=== PATIENT | male | born 1960 | race Caucasian/White ===

== ENCOUNTER 2021-12-09 08:00 | Outpatient (CLI) | payer BC | END 2021-12-09 08:01 | disposition home or self-care (01) | LOC: CSHCT 08:00 | PROVIDERS: ATTEND Family Medicine | DX: J98.4 Other disorders of lung (principal); D32.9 Benign neoplasm of meninges, unspecified; K76.0 Fatty (change of) liver, not elsewhere classified; I25.10 Atherosclerotic heart disease of native coronary artery without angina pectoris; I25.84 Coronary atherosclerosis due to calcified coronary lesion | CPT/HCPCS: 70553; 71260; 71270; 82565 ==

== ENCOUNTER 2024-03-08 23:46 | Emergency (ER) | payer BC ==
[2024-03-09 00:47] LABS: #Basophils 0.05 10x3/uL (0.0-0.2); #Eosinphils 0.15 10x3/uL (0.0-0.5); #Monocytes 0.53 10x3/uL (0.0-1.1); #Neutrophils 5.13 10x3/uL (1.5-8.4); %Basophils 0.7 % (0.0-2.0); %Lymphocytes 22.7 % (18.0-47.0); %Neutrophils 67.5 % (40.0-75.0); Hemoglobin 14.8 g/dL (13.5-17.5); Mean Corpuscular HGB CONC 32.2 g/dL (32.0-36.0); Mean Corpuscular Hemoglobin 29.7 pg (27.0-33.0); Mean Corpuscular Volume 92.4 fL (81.2-95.1); Mean Platelet Volume 10.3 fL (7.4-10.4); Platelet Count 186 10x3/uL (150-450); RBC Distribution Width 14.2 % (11.5-14.5); Red Blood Cell (RBC) Count 4.98 10x6/uL (4.32-5.72); White Blood Cell (WBC) Count 7.6 10x3/uL (3.5-10.5)
[2024-03-09] MEDS ORDERED: HYDROcodone/Acetaminophen 10/325 mg Tablet ONE (00:48)
[2024-03-09 00:50] LABS: ALT (SGPT) 35 U/L (8-55); AST (SGOT) 38 U/L (5-34); Albumin 4.3 g/dL (3.4-4.8); Alkaline Phosphatase 43 U/L (40-110); Anion Gap 17 mmol/L (10-20); BUN (Urea Nitrogen) 16 mg/dL (8.4-25.7); Bilirubin, Total 0.5 mg/dL (0.2-1.2); Calc. Creatinine Clearance 0 mL/min (70-130); Calcium 10.3 mg/dL (7.8-10.44); Carbon Dioxide 22 mmol/L (23-31); Chloride 105 mmol/L (98-107); Estimated GFR 73; Globulin 2.8 g/dL (2.4-3.5); Glucose 173 mg/dL (80-115); Lipase 59 U/L (8-78); Magnesium 1.9 mg/dL (1.6-2.6); Potassium 3.6 mmol/L (3.5-5.1); Protein, Total 7.1 g/dL (5.8-8.1); Sodium 140 mmol/L (136-145)
[2024-03-09 00:56] LABS: Troponin I Less than 0.010 ng/mL (< 0.028)
[2024-03-09] MEDS ORDERED: Nitroglycerin 0.4 MG TAB 1 EACH ONE (01:23)
[2024-03-09] MEDS ORDERED: Nitroglycerin 2% Ointment 1 INCH/1 GM Packet ONE (01:23)
[2024-03-09 05:18] LABS: Critical Call Chem Troponin I NUR.AEB @0518; Troponin I 0.619 ng/mL (< 0.028)
[2024-03-09] MEDS ORDERED: Aspirin Chewable 81 MG TAB ONE (05:32)
[2024-03-09] MEDS ORDERED: Enoxaparin 100 MG (1 mL) SYRINGE ONE (05:32)
[2024-03-09 08:58] LABS: Critical Call Chem Troponin I NUR.DG3@0853; Troponin I 3.127 ng/mL (< 0.028)
[2024-03-09] MEDS ORDERED: Iopamidol 370 76% 100 ML VIAL ONE (12:57)
== END 2024-03-09 12:49 | disposition short-term general hospital (02) ==
LOC: CSHERS 23:46
DX: I21.4 Non-ST elevation (NSTEMI) myocardial infarction (principal); I10 Essential (primary) hypertension; E11.9 Type 2 diabetes mellitus without complications; E78.5 Hyperlipidemia, unspecified; Z55.6 Problems related to health literacy; Z87.891 Personal history of nicotine dependence; Z79.899 Other long term (current) drug therapy; Z79.84 Long term (current) use of oral hypoglycemic drugs; Z79.82 Long term (current) use of aspirin; Z86.73 Personal history of transient ischemic attack (TIA), and cerebral infarction without residual deficits
CPT/HCPCS: 36415; 71045; 71275; 74174; 80053; 83690; 83735; 83880; 84484; 85025; 93005; 96372; J1650; Q9967